=== PATIENT | male | born 1955 | race Caucasian/White ===

== ENCOUNTER 2019-07-16 17:50 | Emergency (ER) | payer MEDICAID, SELFPAY ==
[2019-07-16 17:52] VITALS: BP 93/55; PULSE 78; RESP 14; TEMP 36.1; O2SAT 93; BMI 17.9
--- NOTE | 2019-07-16 19:10 | RAD_ITS ---
STUDY: X-RAY CHEST REASON FOR EXAM: Male, 63 years old. Increasing shortness of breath. Diagnosed with lung cancer a few months ago. Smoker. No treatment. TECHNIQUE: PA and lateral views of the chest. COMPARISON: None. FINDINGS: There is a large cavitary lesion in the right upper lobe with an air-fluid level. This measures 6.6 x 4.2 x 6.3 cm. There is associated infiltrate along its inferior there is consolidation versus mass in the medial right posterior costophrenic angle. There is a vague nodular density in the left lower lobe. Normal size heart. Normal mediastinum and miguelangel. Normal visualized pulmonary arteries. Normal visualized aortic arch and descending thoracic aorta. Normal visualized thoracic spine. Normal visualized ribs, clavicles, and shoulders. There is no demonstrated abnormality of the visualized soft tissue structures of the upper abdomen. RAD/Chest PA and Lateral IMPRESSION: 1. Right upper lobe cavity with air-fluid level. This associated soft tissue density along its inferior margin. 2. Consolidation versus mass in the medial right posterior costophrenic angle. 3. Vague nodular density at the left lung base. Electronically Signed: Andrae Sanon DO at 19:26 EST Tel [phone], Service support ,
--- NOTE | 2019-07-16 19:53 | EKG12_ITS ---
Test Reason : ABD PAIN Blood Pressure : / mmHG Vent. Rate : 066 BPM Atrial Rate : 066 BPM P-R Int : 152 ms QRS Dur : 090 ms QT Int : 412 ms P-R-T Axes : 074 080 078 degrees QTc Int : 431 ms Normal sinus rhythm Normal ECG Confirmed by DUKE ALMANZAR, SHANNA ([id number]), inlayer silver LLOYD ESTEBAN ([id number]) on 07/18/2019 11:47:56 AM Referred By: TANI Confirmed By:SHANNA WALL MD
--- NOTE | 2019-07-16 19:56 | CT_ITS ---
STUDY: CTA CHEST REASON FOR EXAM: Male, 63 years old. Shortness of breath. Recently diagnosed with lung cancer. RADIATION DOSAGE (If Supplied By Facility): CTDIvol = ( 5.28 ) mGy, DLP = ( 165.42 ) mGycm TECHNIQUE: The examination was performed with the intravenous administration of 100ML ISOVUE 370. Post-processing of the angiographic images was performed, with multiplanar reformation and 3D reconstruction. Individualized dose optimization techniques were used for this CT. COMPARISON: Chest, July 16, 2019. FINDINGS: Normal enhancement of the main pulmonary artery and right and left pulmonary arteries. Normal enhancement of the bilateral peripheral pulmonary arteries. There is no demonstrated pulmonary embolism. There is mild atherosclerotic changes of the thoracic aorta without aneurysm. There is no demonstrated aortic dissection. Normal heart and pericardium. Coronary artery calcifications. There is precarinal and subcarinal lymphadenopathy. There is marked soft tissue in the inferior right hilum which compresses the right lower lobe pulmonary arteries and partially obscures the lower lobe and middle lobe bronchi. Normal trachea and left bronchi. The lungs are well expanded. There is a large cavitary mass in the right upper lobe measuring 5.4 x 5.2 x 5.5 cm in size. There is wall thickening as well as an air-fluid level. There is extension into the posterior lateral pleural surface of the right lung as well as stranding extending inferiorly towards the upper right hilum. There are patchy infiltrates in the superior segment of the right upper lobe as well as diffuse consolidation in the posterior right lung base. There is a 0.9 x 0.8 x 0.6 cm nodular density in the right middle lobe as seen on image 103. Diffuse emphysematous changes on the left upper lobe. No infiltrate or mass is seen in the left lung. Normal pleura. Normal chest wall structures. Normal osseous structures. Normal visualized upper abdomen. CT/CTA Chest W/WO Contrast IMPRESSION: 1. No evidence of pulmonary embolus. 2. No aortic dissection or aneurysm. 3. Cavitary lesion in the right upper lobe with extension to the pleural surface and superior right hilum. 4. Marked right hilar mass with partial obstruction of the right lower lobe and middle lobe bronchi and narrowing of the right lower lobe pulmonary arteries. 5. Large area of atelectasis versus infiltrate in the posterior right lower lobe. 6. Nodular density in the right middle lobe. 7. Mediastinal lymphadenopathy. 8. Diffuse emphysematous changes of the lungs. Electronically Signed: Andrae Sanon DO at 21:34 EST Tel [phone], Service support ,
--- NOTE | 2019-07-16 20:07 | ED.RN ---
NO OLD EKG
[2019-07-16 20:21] VITALS: PULSE 82; RESP 24
[2019-07-16] MEDS: Ipratropium/Albuterol Sulfate 3 ML AMPUL.NEB INHALATION (20:21)
[2019-07-16] MEDS: MethylPREDNISolone 125 MG/2 ML Vial IV (20:21)
[2019-07-16] MEDS: 0.9% Normal Saline 1,000 ML 999 ML IV ×2 (20:21→22:13)
[2019-07-16 20:44] LABS: Absolute Lymphocyte Count 2.54 X10^3/uL (0.83-4.51); Absolute Neutrophil Count 18.2 X10^3/uL (2.0-7.7); Basophil# 0.07 X10^3/uL; Basophil% 0.3 % (0-1); Eosinophil# 0.16 X10^3/uL; Eosinophils% 0.7 % (0-5); Hematocrit 32.6 % (40-54); Hemoglobin 10.3 g/dL (13.0-16.5); Lymphocyte # 2.54 X10^3/ul (4.0); Lymphocyte % 11.2 % (19-41); Mean Corp Hgb Conc 31.6 g/dL (32-36); Mean Corpuscular Hgb 29.5 pg (27.0-32.0); Mean Corpuscular Volume 93.4 fL (80-94); Mean Platelet Vol. 9.8 fl (6.2-12.0); Monocyte# 1.56 X10^3/uL; Monocyte% 6.9 % (0-10); NRBC Flagged by Analyzer 0 % (0-5); Neutrophil # 18.15 X10^3/uL (2.7-7.7); Neutrophil % 79.8 % (47-70); POSITIVE DIFFERENTIAL YES; Platelet Count 408 K/mm3 (150-450); RBC Distribution Width CV 14.4 % (11.6-14.6); RBC Distribution Width SD 48.1 fl (35.1-43.9); Red Blood Count 3.49 M/mm3 (4.6-6.2); White Blood Count 22.7 K/mm3 (4.4-11.0)
[2019-07-16 20:46] LABS: Differential Indicated SCAN CRITERIA MET
[2019-07-16 21:00] VITALS: PULSE 67; RESP 26; O2SAT 94
[2019-07-16 21:03] LABS: Anion Gap 4 (5-15); BUN 26 mg/dL (7-18); BUN/Creat Ratio 19.1 RATIO (10-20); Calcium,Total 9.3 mg/dL (8.5-10.1); Chloride 99 mmol/L (98-107); Creatinine, Serum 1.36 mg/dL (0.70-1.30); EST Glomerular Filtration Rate 56 mL/min (>60); Est Glom Filt Rate - Afr Amer 68 mL/min (>60); Estimated Creatinine Clearance 46.57 ml/min; Glucose 123 mg/dL (74-106); Potassium 3.6 mmol/L (3.5-5.1); Sodium Level 134 mmol/L (136-145)
[2019-07-16 21:37] LABS: Lactic Acid 2.4 mmol/L (0.4-1.9)
--- NOTE | 2019-07-16 21:38 | ED.RN ---
lab called to report lactic acid of 2.4. dr. rose and primary nurse made aware.
[2019-07-16 21:50] LABS: Anisocytosis RARE; Macrocytosis RARE; Platelet Estimate SLT INC (ADEQ); Red Cell Morphology N CHROM NORMAL (NORM C&C)
[2019-07-16 23:00] VITALS: BP 91/51; PULSE 63; RESP 22; O2SAT 92
--- NOTE | 2019-07-16 23:02 | ED.VISSUMM ---
- ER Visit Summary Date of Service: 07/16/19 Chief Complaint: Shortness of breath History of Present Illness: The patient is a 63 M with no primary care physician. He reports his shortness of breath began 2 months ago. Is gradually gotten worse. States that he went to [facility] just before and had a CT that was read as lung cancer. He was transferred to [place] and was unhappy with a care there and left AGAINST MEDICAL ADVICE after staying 1 night. Patient reports that he has not had any treatment for this. No antibiotics or steroids. He borrowed and inhaler from a friend. Patient reports he has severe shortness of breath with exertion and coughing. He has mild shortness of breath at rest. Is relieved with oxygen and albuterol. He had does have a cough that is productive us sputum that is pinkish at times. He complains of subjective fever, chills, night sweats. He had a 50 pound weight loss over the past 4 months. Also complains of sharp right-sided chest pain last seconds to a minute at a time. On review of systems he complains of generalized weakness. Physical Examination: Vitals: Stable. Afebrile. General: Well-nourished and cachectic. Head: Normocephalic atraumatic. Neck: Supple, no lymphadenopathy. No JVD. Nontender. Cardiovascular: Regular rate and rhythm. 2 out of 6 systolic murmur. Respiratory: No respiratory distress. Diffuse rhonchi on the right. Abdominal: Soft, nontender, nondistended, normal bowel sounds. No guarding, rebound, or peritoneal signs. Back: Nontender. Extremities: Nontender, no edema. Right below-knee amputation Skin: Normal color, no rash. Neurologic: Alert and oriented ?3. Cranial nerves II through XII are intact. Normal strength and sensation. Psych: Normal affect. Test Results: EKG is sinus at [address] changes. Lactic acid is 2.4. Chem-7 shows a sodium 134, BUN 26, creatinine 1.36, glucose 123. CBC shows white count 22.7 with 87 neutrophils, 11 lymphocytes, and 1.1% immature granulocytes. H&H 10.332.6. Clinical Impression(s) from Imaging Studies Chest X-Ray 07/16/19 19:10 IMPRESSION: 1. Right upper lobe cavity with air-fluid level. This associated soft tissue density along its inferior margin. 2. Consolidation versus mass in the medial right posterior costophrenic angle. 3. Vague nodular density at the left lung base. Electronically Signed: Andrae Sanon DO at 19:26 EST Tel [phone], Service support , Chest CTA 07/16/19 19:56 IMPRESSION: 1. No evidence of pulmonary embolus. 2. No aortic dissection or aneurysm. 3. Cavitary lesion in the right upper lobe with extension to the pleural surface and superior right hilum. 4. Marked right hilar mass with partial obstruction of the right lower lobe and middle lobe bronchi and narrowing of the right lower lobe pulmonary arteries. 5. Large area of atelectasis versus infiltrate in the posterior right lower lobe. 6. Nodular density in the right middle lobe. 7. Mediastinal lymphadenopathy. 8. Diffuse emphysematous changes of the lungs. Electronically Signed: Andrae Sanon DO at 21:34 EST Tel [phone], Service support , Emergency Department Course and Treatment: Patient was placed on oxygen. He was given Unasyn and doxycycline IV. The Unasyn was chosen due to the possibility of a pulmonary abscess. Treatment Plan: Patient was discussed with Dr. Ramos who feels he would be better served at a tertiary care center. Patient asked to go to [facility]. He was discussed with [facility]. They do not have beds. Currently we are waiting for a bed at the main campus [facility]. I discussed this with the patient and he would like to try [facility]. He was discussed with Dr. Kirkland who has accepted him. Disposition: Transferred in improved condition. Impression: 1. Cavitary mass. 3. Sepsis. 3. Lung abscess. 4. Critical care time 33 minutes. This note was generated with [employer] transform citiesation software. It may contain incorrect words, spelling, and punctuation that were not noted in review of the chart prior to signing ED Disposition - Plan for ED Patient: Referrals: Care Physician,No Primary [Primary Care Provider] -
[2019-07-17 00:37] LABS: Reflex Lactate? Y
[2019-07-17 01:00] VITALS: BP 94/40; PULSE 65; RESP 16; O2SAT 95
[2019-07-17 01:24] LABS: Lactic Acid 2.6 mmol/L (0.4-1.9)
[2019-07-17 02:22] VITALS: BP 94/40; PULSE 65; RESP 16; O2SAT 95
[2019-07-17 15:29] LABS: Pathologist Review Reviewed
== END 2019-07-17 02:23 | disposition home or self-care (01) ==
PROVIDERS: Emergency Provider Emergency Medicine
DX: A41.9 Sepsis, unspecified organism (principal); R91.8 Other nonspecific abnormal finding of lung field; J85.2 Abscess of lung without pneumonia; F17.210 Nicotine dependence, cigarettes, uncomplicated
CPT/HCPCS: 36415; 71046; 71275; 80048; 83605; 85025; 87040; 93005; 94640; 96365; 96367; 96375; 99285; J7030; Q9967; A4216; J0295